=== PATIENT | female | born 1980 | race Hispanic/Latino ===

== ENCOUNTER 2016-07-23 16:04 | Emergency (ER) | payer SELFPAY ==
[~2016-07-23] VITALS: Ht 157.5 cm; Wt 75.0 kg
[~2016-07-23 16:04] MED LIST: BENADRYL 50MG C50 MG PO; CAPTOPRIL100 MG OR; CEPHALEXIN500 MG PO; CIPRO500 MG OR; FLOVENT HFA44 MCG IN; LORTAB 5 OR; MEDDOSEPAK PO; METFORMIN500 MG PO; NAPROSYN500 MG OR; NO HOME MEDS; NO MEDS; ORTHO TRI-CY; ORTHO TRI-CY OR; ORTHO TRI-CYCLEN LO PO; PHENERGAN25 MG/TAB PO; PROAIR HFA IN; ULTRAM50 M1 PO; ULTRAM50 MG OR; ZITHROMAX250 MG PO
[2016-07-23 16:36] LABS: URINE BILIRUBIN - DIPSTICK NEGATIVE (NEGATIVE); URINE BLOOD DIPSTICK NEGATIVE (NEGATIVE); URINE CLARITY CLEAR; URINE COLOR YELLOW; URINE GLUCOSE - DIPSTICK NEGATIVE (NEGATIVE); URINE KETONE NEGATIVE (NEGATIVE); URINE LEUK ESTERASE NEGATIVE (NEGATIVE); URINE NITRITE - DIPSTICK NEGATIVE (Negative); URINE PROTEIN - DIPSTICK NEGATIVE (NEG-TRACE); URINE UROBILINOGEN - DIPSTICK 0.2 E.U./dL (0.2)
[2016-07-23 16:51] LABS: HEMATOCRIT 36.9 % (37.0-47.0); HEMOGLOBIN 12.2 g/dl (12.0-16.0); IMMATURE GRANULOCYTES 0.4 % (0.0-1.0); MEAN CELL VOLUME 84.8 fL CALC (80.0-100.0); MEAN CORPUSCULAR HGB CONC 33.1 g/L CALC (32.0-36.0); NEUT# 3.45 thou/uL (2.00-7.15); RED BLOOD COUNT 4.35 mill/uL (4.20-5.60); RED CELL DISTRI WIDTH 12.3 % (11.5-15.5)
[2016-07-23 17:09] LABS: ALBUMIN 4.2 g/dL (3.2-5.0); ALKALINE PHOSPHATASE 79 u/l (38-126); AMYLASE 56 u/l (30-110); ANION GAP 17 (6-22 (CALC)); BILIRUBIN, TOTAL 0.5 mg/dL (0.0-1.4); BUN 12 mg/dL (7-17); BUN/CREATININE RATIO 18 (12-20 (CALC)); CALCIUM 9.1 mg/dL (8.4-10.2); CARBON DIOXIDE 26 mmol/l (22-30); CHLORIDE 107 mmol/l (95-108); CREATININE 0.6 mg/dL (0.5-1.0); GFR > 60 ML/MIN (>=60 (CALC)); GFR FOR AFR.AMER. > 60 ML/MIN (>=60 (CALC)); GLUCOSE 123 mg/dL (65-105); LIPASE 74 u/l (23-300); POTASSIUM 3.7 mmol/l (3.5-5.1); SGOT/AST 34 u/l (14-36); SGPT/ALT 19 u/l (9-52); SODIUM 146 mmol/l (137-146); TOTAL PROTEIN 7.9 g/dL (6.3-8.2)
[2016-07-23] MEDS ORDERED: NORCO1 TA1 PO (21:00)
[2016-07-23] MEDS ORDERED: METRONIDAZOL500 MG PO (21:00)
[2016-07-23] MEDS ORDERED: CIPROFLOXACN500 MG PO (21:00)
[2016-07-23 21:45] VITALS: BP 122/76
== END 2016-07-23 21:45 | disposition home or self-care (01) | DRG 392 ==
LOC: ED 16:04
PROVIDERS: Emergency Medicine
DX: K57.32 Diverticulitis of large intestine without perforation or abscess without bleeding (principal)
CPT/HCPCS: Q9967

== ENCOUNTER 2017-11-28 13:37 | Observation (INO) | payer SELFPAY ==
[~2017-11-28] VITALS: Ht 157.5 cm; Wt 80.0 kg
[~2017-11-28 13:37] MED LIST changes: +CIPROFLOXACN500 MG PO; +METRONIDAZOL500 MG PO; +NORCO1 TA1 PO
--- NOTE | 2017-11-28 13:40 | NUR ---
PT TAKEN STRAIGHT BACK TO ER ROOM 8 BY YASIR WITH MOM. CHANGED INTO GOWN. ASSITED TO BED x2.
--- NOTE | 2017-11-28 13:56 | NUR ---
PT HAS DIFFICULTY VERBALIZING DURING TRIAGE DUE TO PAIN. MOM STATES PT HAS BEEN FOR 5 YEARS AND HAS NEVER BEEN BEFORE [facility] HER PERIODS ARE IRREGULAR.
--- NOTE | 2017-11-28 14:00 | NUR ---
PT HYPERVENTILATING AND REPORTS NUMBESS AND TINGLING TO BILATERAL HANDS AND FACE. CARPOPEDAL SPASMS NOTED TO BILATERAL HANDS. PT REPORTS SUDDEN ONSET OF LOW PELVIC PAIN RADIATING TO PERINELA AREA. PER PT SHE FEELS IF SHE HAS A BULDGE IN HER VAGINA. PT ABD SOFT, TENDER TO LLQ. PT WRITING IN STRETCHER. 2 MG ATIVAN GIVEN VIA SLOW IVP. PT AND MOTHER AWARE OF PLAN OF CARE.
--- NOTE | 2017-11-28 14:10 | NUR ---
PT PAIN CONTINUES TO BE 10/10 BUT IS RESTING IN STRETCHER. PT HAS RELIEF FROM TINGLING IN BILATERAL HANDS AND FACE. MD NOTIIFED OF CONTINUED PAIN.
[2017-11-28 14:13] LABS: HEMOGLOBIN 13.3 g/dl (12.0-16.0); IMMATURE GRANULOCYTES 0.4 % (0.0-5.0); MEAN CELL VOLUME 85.5 fL CALC (80.0-100.0); MEAN CORPUSCULAR HGB 29.2 pG CALC (26.0-32.0); MEAN CORPUSCULAR HGB CONC 34.1 g/L CALC (32.0-36.0); NEUT# 9.22 thou/uL (2.00-7.15); RED BLOOD COUNT 4.56 mill/uL (4.20-5.60); RED CELL DISTRI WIDTH 12.3 % (11.5-15.5)
--- NOTE | 2017-11-28 14:30 | NUR ---
PT LYING ON LEFT SIDE HOLDING HER ABD AT THIS TIME. PT AND MOTHER AWARE OF PLAN TO HOLD ANY PAIN MEDICATION UNTIL TEST RESULTS RETURN. PT REPORTS PAIN AND BURNING UPON URINATION WELL. CALL SOTO WITHIN REACH.
[2017-11-28 14:31] LABS: URINE BILIRUBIN - DIPSTICK NEGATIVE (NEGATIVE); URINE BLOOD DIPSTICK NEGATIVE (NEGATIVE); URINE CLARITY CLEAR; URINE COLOR YELLOW; URINE GLUCOSE - DIPSTICK NEGATIVE (NEGATIVE); URINE KETONE NEGATIVE (NEGATIVE); URINE LEUK ESTERASE NEGATIVE (Negative); URINE NITRITE - DIPSTICK NEGATIVE (Negative); URINE PH 7.5 (4.5-8.0); URINE PROTEIN - DIPSTICK NEGATIVE (NEG-TRACE); URINE UROBILINOGEN - DIPSTICK 0.2 E.U./dL (0.2)
[2017-11-28 14:32] LABS: BARBITURATES NEGATIVE (NEGATIVE); COCAINE NEGATIVE (NEGATIVE); METHADONE NEGATIVE (NEGATIVE); OXCYCODONE NEGATIVE (NEGATIVE); TETRAHYDROCANNABIONOL NEGATIVE (NEGATIVE); TRICYLIC ANTIDEPRESSANTS NEGATIVE (NEGATIVE)
[2017-11-28 14:32] LABS: ALBUMIN 4.4 g/dL (3.2-5.0); ALKALINE PHOSPHATASE 101 u/l (38-126); ANION GAP 20 (6-22 (CALC)); BILIRUBIN, TOTAL 0.3 mg/dL (0.0-1.4); BUN 10 mg/dL (7-17); BUN/CREATININE RATIO 14 (12-20 (CALC)); CARBON DIOXIDE 19 mmol/l (22-30); CHLORIDE 105 mmol/l (95-108); CREATININE 0.7 mg/dL (0.5-1.0); GFR > 60 ML/MIN (>=60 (CALC)); GFR FOR AFR.AMER. > 60 ML/MIN (>=60 (CALC)); POTASSIUM 3.7 mmol/l (3.5-5.1); SGOT/AST 19 u/l (14-36); SGPT/ALT 34 u/l (9-52); SODIUM 141 mmol/l (137-146); TOTAL PROTEIN 7.7 g/dL (6.3-8.2)
[2017-11-28 14:49] LABS: BETA-HCG, QUANT(RESULT NUMBER) <2 mIU/mL
--- NOTE | 2017-11-28 14:52 | NUR ---
PT IN STRETCHER CRYING OUTIN PAIN ON HANDS AND KNEES AND REPORTS IF SHE FEELS SHE NEEDS TO PUSH SOMETHING OUT OF HER VAGINA. PT WILL NOT SIT DOWN ON STRETCHER OR LAY BACK. PT INFORMED THAT SHE IS NOT AND THAT THE MD HAS ORDERED PAIN MEDICATION FOR HER. PT SAT IN STRETCHER HOLDING LEFT SIDE AND PERINEAL AREA. NO DISCHARGE OR MASS NOTED TO THE VAGINAL OPENING UPON INSPECTION.
--- NOTE | 2017-11-28 14:56 | NUR ---
PT MEDICATED WITH 4MG OF MORPHINE AND 4MG OF ZOFRAN, IVP FOR 10/10 PAIN TO THE LEFT SIDED PELVIC AREA. LEFT SIDED CVA TENDERNESS NOTED WELL. PT AND MOTHER AWARE OF PLAN FOR CT SCAN AND WAIT TIME. CALL SOTO WITHIN REACH.
--- NOTE | 2017-11-28 15:30 | NUR ---
PT REPORTS PAIN IS 7/10 AND DENIES ANY NAUSEA AT THIS TIME. CALL SOTO WITHIN REACH.
--- NOTE | 2017-11-28 15:40 | NUR ---
PT TOLERATING PO CONTRAST WITH NO DIFFICULTY.
--- NOTE | 2017-11-28 16:29 | NUR ---
PT AND MOTHER AWARE OF WAIT TIME FOR CT SCAN. PT RESTING COMFORTABLY IN STRETCHER IN NAD WITH EYES CLOSED AND AWAKENS TO VERBAL STIMULI. PT REPORTS PAIN CONTINUES TO BE 7/10. CALL SOTO WITHIN REACH, WILL CONTINUE TO MONITOR.
--- NOTE | 2017-11-28 17:00 | NUR ---
PT RETURNED FROM CT SCAN AND REPORTS TROUBLE SPEAKING AND A DRY FEELING IN HER MOUTH. PT DENIES ANY TROUBLE BREATHING AT THIS TIME AND INFORMED THAT HER MOUTH FEELS VERBY DRY AND HER TEETH HURT. AT BEDSIDE TO EVALUATE PT. ICE CHIPS AND WATER PROVIDED.
--- NOTE | 2017-11-28 17:10 | NUR ---
TEMP RECHECK 101.0. NOTIFIED, AWAITING NEW ORDERS.
--- NOTE | 2017-11-28 17:15 | NUR ---
PT SPEAKING IN BROKEN MONGOLIAN AND REPORTS HER MOUTH FEELS MUCH BETTER.
--- NOTE | 2017-11-28 17:31 | NUR ---
MD AT BEDSIDE TO DISCUSS RESULTS AND PLAN FOR ADMISSION.
--- NOTE | 2017-11-28 17:49 | NUR ---
REPORT CALLED TO KHADRA DELGADO.
--- NOTE | 2017-11-28 18:00 | NUR ---
TEMP RECHECK 100.6. PTRESTING COMFORTABLY IN STRETCHER AND IS AWARE OF PLAN FOR TRANSPORT TO ROOM. PT PAIN IS 6/10 AT THIS TIME. CALL SOTO WITHIN REACH.
--- NOTE | 2017-11-28 18:10 | NUR ---
Admission Note Report Given to: sbar printed to floor Transported by: Wheelchair x Stretcher Transported with: x Nurse Transporter x Patent IV O2 Corrugated Fastener Driver
--- NOTE | 2017-11-28 18:16 | NUR ---
PT ARRIVED TO MS2 VIA STRETCHER TO RM 290 SHE IS [place] SPEAKING ONLY, PT ALERT AND ORIENTED X3, AMBULATED WITH STEADY GAIT TO DIGITAL STANDING SCALE. WEIGHT OBTAINED. PT ASSISTED TO BED, VITALS OBTAINED. NO SIGNS OF DISTRESS NOTED, RESP EVEN AND UNLABORED. PT REQUESTING 02 2L NC, SATS 98% RA, PT PLACED ON 02 2L NC. TEDS APPLIED, DISCUSSED NPO STATUS. AND ORIENTED TO ROOM, IV FLAGYL INFUSING AT THIS TIME, CALL LIGHT IN REACH,CONTINUE TO MONITOR.
[2017-11-28 18:17] VITALS: BP 121/77
--- NOTE | 2017-11-28 19:48 | NUR ---
BEDSIDE REPORT RECEIVED FROM KHADRA DELGADO. PT SITTING UP IN BED WITH VISITOR AT BEDSIDE; ALERT AND OREINTED; M[place]OCC[place] SPEAKING ONLY. DENIES PAIN CURRENTLY. RESPIRATIONS EVEN AND UNLABORED ON OXYGEN PER PT REQUEST. CIPRO INFUSING AT THIS TIME. PLAN OF CARE DISCUSSED. PT ENCOURAGED TO VERBALIZE CONCERNS. STATES UNDERSTANDING. SAFETY MEASURES IN PLACE. CALL LIGHT WITHIN REACH.
[2017-11-28 20:13] VITALS: BP 100/72
--- NOTE | 2017-11-28 20:33 | NUR ---
PT C/O 9/10 PAIN TO GROIN AREA, CONTINUES TO C/O SEVERE BURNING WITH URINATION, AND STATES THAT SHE FEELS LIKE SOMETHING IS PUSHING OUT OF HER VAGINA; NO VISIBLE ABNORMALIITES NOTED TO VAGINAL AREA. MORPHINE OFFERED TO PT, SHE DECLINED STATING THAT SHE DOES NOT LIKE THE WAY IT MAKES HER FEEL. SHE AGREED TO TAKE TYLENOL. TYLENOL GIVEN AND WARM COMPRESS APPLIED. PT INFORMED OF DIET UPGRADE TO CLEAR LIQUID AND SHE REQUESTED ORANGE JUICE. NO OTHER REQEUSTS AT THIS TIME. CALL LIGHT WITHIN REACH.
[2017-11-28 21:14] VITALS: BP 106/70
--- NOTE | 2017-11-28 21:55 | NUR ---
TYLENOL WAS INEFFECTIVE FOR PAIN. NEW ODER RECEIVED FOR DIALUDID AND PT AGREED TO TRY; ADMINISTERED AT THIS TIME. MOTHER REMAINS AT BEDSIDE.
--- NOTE | 2017-11-29 00:03 | NUR ---
PT ASLEEP AT THIS TIME WITH NO SIGNS OF DISTRESS. RESPIRATIONS EVEN AND UNLABROED ON OXYGEN. DIALUDID EFFECTIVE FOR GROIN PAIN. PT AMBULATES INTO BATHROOM INDEPENDENTLY. NO REQUESTS OR CONCERNS AT THIS TIME. SAFETY MEASURES IN PLACE. CALL LIGHT WITHIN REACH.
[2017-11-29 04:10] VITALS: BP 92/62
--- NOTE | 2017-11-29 04:12 | NUR ---
PT UP TO VOID; DIALAUDID GIVEN FOR GROIN PAIN. IV FLUIDS INFUSING WITHOUT DIFFICULTY; IV SITE APPEARS HEALTHY. NO ACUTE CHANGES IN CONDITION THROUGHOUT THE NIGHT. SAFETY MEASURES IN PLACE. CALL LIGHT WITHIN REACH.
--- NOTE | 2017-11-29 07:13 | NUR ---
PT RESTING IN BED, C/O PAIN 08/27. PT MEDICATED PER JUN. NO SIGNS OF DISTRESS NOTED, RESP EVEN AND UNLABORED. CALL LIGHT IN REACH,CONTINUE TO MONITOR.
[2017-11-29 08:52] VITALS: BP 99/70
--- NOTE | 2017-11-29 09:29 | NUR ---
ENTERED ROOM DUE TO IV PUMP BEEPING, DOWNSTREAM OCCLUSION, PT HAS HER ARM BENT AND SHE IS VOMITTING. PER MOTHER AT BEDSIDE, PT BECAME NAUSEOUS WHEN SHE ATTEMPTED TO EAT HER LIQUID DIET BREAKFAST TRAY. PT MEDICATED WITH ZOFRAN. NO SIGNS OF DISTRESS NOTED, RESP EVEN AND UNLABORED. 200CC EMPTIED FROM HAT. CALL LIGHT IN REACH,CONTINUE TO MONITOR.
[2017-11-29 13:42] LABS: HEMATOCRIT 35.1 % (37.0-47.0); HEMOGLOBIN 11.9 g/dl (12.0-16.0); IMMATURE GRANULOCYTES 0.4 % (0.0-5.0); MEAN CELL VOLUME 87.1 fL CALC (80.0-100.0); MEAN CORPUSCULAR HGB 29.5 pG CALC (26.0-32.0); MEAN CORPUSCULAR HGB CONC 33.9 g/L CALC (32.0-36.0); NEUT# 8.23 thou/uL (2.00-7.15); RED BLOOD COUNT 4.03 mill/uL (4.20-5.60); RED CELL DISTRI WIDTH 12.3 % (11.5-15.5)
--- NOTE | 2017-11-29 13:43 | NUR ---
PT STATES SHE FEEL WARM TEMP OBTAINED, PT AFEBRILE. FLAGYL INITIATED. CALL LIGHT IN REACH,CONTINUE TO MONITOR.
[2017-11-29 14:11] LABS: ANION GAP 13 (6-22 (CALC)); BUN 6 mg/dL (7-17); BUN/CREATININE RATIO 13 (12-20 (CALC)); CARBON DIOXIDE 23 mmol/l (22-30); CHLORIDE 106 mmol/l (95-108); CREATININE 0.5 mg/dL (0.5-1.0); GFR > 60 ML/MIN (>=60 (CALC)); GFR FOR AFR.AMER. > 60 ML/MIN (>=60 (CALC)); POTASSIUM 3.9 mmol/l (3.5-5.1); SODIUM 138 mmol/l (137-146)
[2017-11-29 16:00] VITALS: BP 105/70
--- NOTE | 2017-11-29 16:30 | NUR ---
PT RESTING IN BED, S/O AT BEDSIDE, NO SIGNS OF DISTRESS NOTED, RESP EVEN AND UNLABORED. PT VOICES NO NEEDS OR COMPLAINTS AT THIS TIME, CALL LIGHT IN REACH,CONTINUE TO MONITOR.
--- NOTE | 2017-11-29 18:44 | NUR ---
PT REQUESTING TO SHOWER, MOTHER AT BEDSIDE, PT PROVIDED WITH NEW LINENS AND GOWN. IVF STOPPED, IV SITE COVERED. ENCOURAGED TO CALL WHEN FINISHED.
[2017-11-29 19:00] VITALS: BP 131/90
--- NOTE | 2017-11-29 19:53 | NUR ---
BEDSIDE REPORT RECEIVED FROM KHADRA DELGADO. PT GETTING OUT OF THE SHOWER AT THIS TIME; MOTHER AT BEDSIDE; ALERT AND ORIENTED. C/O PAIN AT IV SITE AND MILD REDNESS NOTED; IV D/C'D AND NEW SITE PLACED TO LFA. ALSO C/O MILD PAIN TO GROIN/VAGINAL AREA. RESPIRATIONS EVEN AND UNLABORED ON ROOM AIR. PLAN OF CARE REVIEWED. PT ENCOURAGED TO VERBALIZE CONCERNS. STATES UNDERSTANDING. SAFETY MEASURES IN PLACE. CALL LIGHT WITHIN REACH.
--- NOTE | 2017-11-30 | NUR ---
PT ASLEEP AT THIS TIME WITH NO SIGNS OF DISTRESS. RESPIRATIONS EVEN AND UNLABORED ON ROOM AIR. MOTHER REMAINS AT BEDSIDE. IV FLUIDS INFUSING WITHOUT DIFFICULTY; IV SITE APPEARS HEALTHY. INDEPENDENT IN ROOM. SAFETY MEASURES IN PLACE. CALL LIGHT WITHIN REACH.
--- NOTE | 2017-11-30 04:15 | NUR ---
PT ASLEEP; AWAKENS TO VERBAL STIMULI. NO ACUTE CHANGES IN CONDITION THROUGHOUT THE NIGHT. CALL LIGHT WITHIN REACH.
[2017-11-30 05:29] VITALS: BP 90/64
--- NOTE | 2017-11-30 07:12 | NUR ---
BEDSIDE REPORT RECEIVED BY ARCHANA. PT IS SLEEPING ON HER RIGHT SIDE WITH NO S/S OF DISTRESS NOTED. CALL LIGHT IN REACH.
[2017-11-30 07:32] VITALS: BP 102/73
--- NOTE | 2017-11-30 08:03 | NUR ---
ASSESSMENT DONE. RESPS EVEN AND UNLABORED. PT STATED PAIN IN LOWER ABD 2/10. WARM PACK PROVIDED. NS 100ML/HR INFUSING WELL. PT DENIES NEEDS AT THIS TIME. SAFETY PRECAUTIONS REINFORCED AND CALL LIGHT IN REACH.
--- NOTE | 2017-11-30 08:34 | NUR ---
CULTURE RESULTS CALLED TO . 1 OF 2 SETS GROWING GRAM (+) COCCI. [id number]
--- NOTE | 2017-11-30 11:27 | NUR ---
S: MARYAMDAWIT ORTEGA is a 37 F who presents with Abdominal Pain. She has a history of IRREGULAR PERIODS AND DIVERTICULITIS. All medications in patient's chart were reviewed. O: VS: BP <102/73>, P<65>, RR<18>,T<98.5> W <80 kg>, HT<62 IN>, Scr=<0.5>,CrCl= >90ml/min A: Blood culture <show ONE OF 2 SETS GROWING GRAM (+) COCCI> which is sensitive to <PENDING >. P: Patient is on CIPRO/VANCO/FLAGYL. Vancomycin ordered for pharmacy to dose. Start Vancomycin 1 GRAM IV Q8H. Vancomycin trough is drawn before the 4th dose on 12/01/17 1530. Vancomycin goal trough is between 15-20 mcg/ml POSSIBLE [facility] WILL FOLLOW AND ADJUST ABX DOSE NEEDED JOANNE DIORD
--- NOTE | 2017-11-30 11:50 | NUR ---
NOTIFIED LELE RICK THAT PT IS ITCHING IN HER BACK, FACE AND EYES. DIRECTOR OF COLLECTIONS AND ARCHIVES AT BEDSIDE TO ASSESS PT. VANCOMYCIN HOLD AT THIS TIME PER DIRECTOR OF COLLECTIONS AND ARCHIVES. ORDERED RECEIVED. PT DENIES ANY OTHER NEEDS AT THIS TIME. PT MOM IN ROOM. CALL LIGHT IN REACH.
--- NOTE | 2017-11-30 12:10 | NUR ---
PT INCONTINENT WITH LARGE YELLOW URINE. CHIO CARE DONE. READJUSTED PURE WICK. SETUP UP PT FOR LUNCH. BED ALARM IN PLACE FOR SAFETY AND FAMILY LEFT . CALL LIGHT IN REACH.
[2017-11-30 12:30] VITALS: BP 104/70
--- NOTE | 2017-11-30 13:15 | NUR ---
PT IS SLEEPING IN BED WITH NO S/S OF DISTRESS NOTED. CALL LIGHT IN REACH.
--- NOTE | 2017-11-30 14:47 | NUR ---
PT INCONTINENT WITH LARGE YELLOW URINE. CHIO CARE DONE BY QUEBRACHO TANNER. REPLACE THE PURE WICK WITH A NEW ONE. TURN PT TO HER LEFT SIDE. PT IS A&O X1 TO SELF. SON IN ROOM. CALL LIGHT IN REACH.
--- NOTE | 2017-11-30 15:43 | NUR ---
PT IS SITTING IN THE RECLINER. PT DENIES PAIN AT THIS TIME. PT ALSO, DENIES ITCHING IN HER BODY. JUICE PROVIDED PER PT REQUEST. PT DENIES ANY OTHER NEEDS AT THIS TIME. CALL LIGHT IN REACH.
[2017-11-30 16:00] VITALS: BP 105/73
--- NOTE | 2017-11-30 19:24 | NUR ---
PT RESTING IN BED WATCHING TV WITH FAMILY AT BEDSIDE. PT CURRENTLY DENIES ANY PAIN. HOT PACK PROVIDED PER PT REQUEST. RESP EVEN AND UNLABORED. LUNGS CLEAR BILAT. ABD SOFT, HYPOACTIVE BOWEL SOUNDS. PEDAL PULSES PALPATED BILAT. IV LFA PATENT; NO REDNESS OR EDEMA NOTED. PT ENCOURAGED TO CALL FOR ASSISTANCE. SAFETY PRECAUTIONS REINFORCED. FREQUENT ROUNDS MADE. CALL LIGHT WITHIN REACH.
[2017-11-30 21:07] VITALS: BP 110/77
--- NOTE | 2017-12-01 00:27 | NUR ---
PT RESTING IN BED ON CELL PHONE. PT DENIES PAIN. RESP EVEN AND UNLABORED. IV PATENT, SITE APPEARS HEALTHY. FAMILY AT BEDSIDE. CALL LIGHT WITHIN REACH.
--- NOTE | 2017-12-01 03:55 | NUR ---
PT WOKE FOR MORNING VITALS. PT DENIES ANY PAIN. ASSESSMENT UNCHANGED THROUGHOUT THE NIGHT. IV PATENT, SITE APPEARS HEALTHY. FAMILY AT BEDSIDE. CALL LIGHT WITHIN REACH.
[2017-12-01 04:30] VITALS: BP 103/67
[2017-12-01 05:18] LABS: HEMATOCRIT 35.2 % (37.0-47.0); MEAN CELL VOLUME 86.1 fL CALC (80.0-100.0); MEAN CORPUSCULAR HGB 29.3 pG CALC (26.0-32.0); MEAN CORPUSCULAR HGB CONC 34.1 g/L CALC (32.0-36.0); RED BLOOD COUNT 4.09 mill/uL (4.20-5.60); RED CELL DISTRI WIDTH 12.1 % (11.5-15.5)
--- NOTE | 2017-12-01 06:02 | NUR ---
PT OUT OF BED SITTING IN BEDSIDE CHAIR WATCHING TV. PT DENIES ANY PAIN. IV PATENT. CALL LIGHT WITHIN REACH.
--- NOTE | 2017-12-01 07:15 | NUR ---
PT ALERT AND ORIENTED, RESTING IN BED, OFFERS NO COMPLAINTS, IVF INFUSING PRESCRIBED. AM ASSESSMENT COMPLETED SEE INTERVENTIONS, SKIN INTACT, DENIES N/V ABD SOFT., BM YESTERDAY PER REPORT, SAFETY MEASURES REINFRORCED, CALL CHARLES CARSON, WILL CONTINUE TO MONITOR
--- NOTE | 2017-12-01 07:35 | NUR ---
MEAL TRAY AT BEDSIDE, WILL MONITOR TOLERANCE
[2017-12-01 07:47] VITALS: BP 102/71
--- NOTE | 2017-12-01 08:04 | NUR ---
PT SITTING UP IN CHAIR AT BEDSIDE, OFFERS NO COMPLAINTS, CALL SOTO WITHIN REACH
--- NOTE | 2017-12-01 08:52 | NUR ---
TAKES PO MEDICATRION W/O INCIDENT, VISITOR AT BEDSIDE, IV ABT INFUSING ORDERED.
--- NOTE | 2017-12-01 10:18 | NUR ---
PT COMPLAINS OF BURNING/HOT AT IV INSERTION SITE, SLIGHTLY RED BUT ASPIRATE NOTED, IV ACCESS REMOVED INTACT PER PT REQUEST.
--- NOTE | 2017-12-01 11:07 | NUR ---
PT EDUCATED REGARDING PLAN OF CARE INCLUDING DIET CHANGE AND IF TOLERATED HOME THIS AFTERNOON, IV ACCESS REMAINS OUT PER VERBAL ORDER PLACIDO, WILL RESTART IF UNABLE TO TOLERATE DIET.
[2017-12-01] MEDS ORDERED: METRONIDAZOLE500 MG PO (12:43)
[2017-12-01] MEDS ORDERED: CIPROFLOXACIN500 M1 PO (12:43)
--- NOTE | 2017-12-01 13:01 | NUR ---
PT AWARE OF PLANNED D/C
--- NOTE | 2017-12-01 13:36 | NUR ---
D/C INSTRUCTIONS PROVIDED FOR PT WITH FAMILY MEMBER AT BEDSIDE, INSTRUCTED TO FOLLOW UP WITH PCP IN NEXT WEEK AND TO FOLLOW UP WITH BANDER HAND MAINOR, ALSO INSTRUCTED TO EAT LOW RESIDUE DIET, ABLE TO RETURN TO WORK FULL DUTY PER PLACIDO ROYAL, (LETTER STATING SUCH PROVIDED AT PT REQUEST) SCRIPTS FOR FLAGYL AND CIPRO PROVIDED TO PATIENT AND INSTRUCTED NEXT DOAGE FOR BOTH IS THIS PM AN BEDTIME, ALL INFORMATION PROVIDED TO PATIENT VIA REIMBURSEMENT CONSULTANT SHILA RODRIGUEZ, INSTRUCTED TO CALL WHEN DRESSED FOR W/C TO TRANPORT FOR D/C
--- NOTE | 2017-12-01 13:47 | NUR ---
PT D/C'D VIA WC TO HOME WITH FAMILY, ALL BELONGINGS SENT WITH PATIENT
== END 2017-12-01 13:47 | disposition home or self-care (01) | DRG 392 ==
LOC: ED 13:37 → ED-I 17:18 → ED 17:50 → MS2 17:51
PROVIDERS: Emergency Medicine; Nurse Practitioner Family; ADMIT General Practice; ATTEND General Practice
DX: K57.32 Diverticulitis of large intestine without perforation or abscess without bleeding (principal); N92.6 Irregular menstruation, unspecified; E66.9 Obesity, unspecified; L50.0 Allergic urticaria; N91.2 Amenorrhea, unspecified; N83.202 Unspecified ovarian cyst, left side; N83.201 Unspecified ovarian cyst, right side; Z68.32 Body mass index [BMI] 32.0-32.9, adult
CPT/HCPCS: G0378; J2060; Q9967; S0164

== ENCOUNTER 2017-12-07 13:53 | Observation (INO) | payer SELFPAY ==
[~2017-12-07] VITALS: Ht 157.5 cm; Wt 77.0 kg
[~2017-12-07 13:53] MED LIST changes: +CIPROFLOXACIN500 M1 PO; +METRONIDAZOLE500 MG PO
[2017-12-07 14:40] LABS: HEMATOCRIT 41.1 % (37.0-47.0); IMMATURE GRANULOCYTES 0.8 % (0.0-5.0); MEAN CELL VOLUME 85.6 fL CALC (80.0-100.0); MEAN CORPUSCULAR HGB 29.2 pG CALC (26.0-32.0); MEAN CORPUSCULAR HGB CONC 34.1 g/L CALC (32.0-36.0); NEUT# 3.83 thou/uL (2.00-7.15); RED BLOOD COUNT 4.8 mill/uL (4.20-5.60); RED CELL DISTRI WIDTH 12.4 % (11.5-15.5)
[2017-12-07 14:53] LABS: ALBUMIN 4.7 g/dL (3.2-5.0); ALKALINE PHOSPHATASE 78 u/l (38-126); AMYLASE 86 u/l (30-110); ANION GAP 19 (6-22 (CALC)); BILIRUBIN, TOTAL 0.4 mg/dL (0.0-1.4); BUN 15 mg/dL (7-17); BUN/CREATININE RATIO 14 (12-20 (CALC)); CARBON DIOXIDE 20 mmol/l (22-30); CHLORIDE 109 mmol/l (95-108); CREATININE 1.1 mg/dL (0.5-1.0); GFR 56 ML/MIN (>=60 (CALC)); GFR FOR AFR.AMER. > 60 ML/MIN (>=60 (CALC)); LIPASE 121 u/l (23-300); POTASSIUM 4.3 mmol/l (3.5-5.1); SGOT/AST 30 u/l (14-36); SGPT/ALT 56 u/l (9-52); SODIUM 144 mmol/l (137-146); TOTAL PROTEIN 8.4 g/dL (6.3-8.2)
[2017-12-07 15:19] LABS: URINE BILIRUBIN - DIPSTICK NEGATIVE (NEGATIVE); URINE BLOOD DIPSTICK NEGATIVE (NEGATIVE); URINE COLOR YELLOW; URINE GLUCOSE - DIPSTICK NEGATIVE (NEGATIVE); URINE KETONE NEGATIVE (NEGATIVE); URINE LEUK ESTERASE NEGATIVE (NEGATIVE); URINE NITRITE - DIPSTICK NEGATIVE (Negative); URINE PH 6.5 (4.5-8.0); URINE PROTEIN - DIPSTICK 30 mg/dL (NEG-TRACE); URINE SPECIFIC GRAVITY >=1.030; URINE UROBILINOGEN - DIPSTICK 0.2 E.U./dL (0.2)
[2017-12-07 15:20] LABS: URINE CLARITY SL CLOUDY
[2017-12-07 15:28] LABS: URINE CALCIUM OXALATE CRYSTALS MANY lpf; URINE RBC 0-2 RBC/hpf (0-5); URINE SQUAMOUS EPITHELIAL CELL FEW EPI/hpf (0-FEW); URINE WBC 0-2 WBC/hpf (0-5)
[2017-12-07 15:45] LABS: BARBITURATES NEGATIVE (NEGATIVE); COCAINE NEGATIVE (NEGATIVE); METHADONE NEGATIVE (NEGATIVE); OXCYCODONE NEGATIVE (NEGATIVE); TETRAHYDROCANNABIONOL NEGATIVE (NEGATIVE); TRICYLIC ANTIDEPRESSANTS NEGATIVE (NEGATIVE)
[2017-12-07 19:45] VITALS: BP 113/70
[2017-12-08 01:06] VITALS: BP 101/64
[2017-12-08 04:00] VITALS: BP 100/54
[2017-12-08 07:44] VITALS: BP 96/54
[2017-12-08 11:11] VITALS: BP 105/70
[2017-12-08 15:03] VITALS: BP 108/67
[2017-12-08 18:19] VITALS: BP 100/68
[2017-12-09 00:35] VITALS: BP 109/75
[2017-12-09 04:50] VITALS: BP 103/74
[2017-12-09] MEDS ORDERED: METRONIDAZOLE500 MG PO (09:06)
[2017-12-09] MEDS ORDERED: CIPROFLOXACIN500 M1 PO (09:06)
[2017-12-09 09:31] VITALS: BP 109/58
== END 2017-12-09 10:57 | disposition home or self-care (01) | DRG 392 ==
LOC: ED 13:53 → ED-I 14:16 → ED 14:16 → ED-I 18:55 → ED 19:10 → MS2 19:11
PROVIDERS: ADMIT Internal Medicine; ATTEND Internal Medicine
DX: K57.92 Diverticulitis of intestine, part unspecified, without perforation or abscess without bleeding (principal); N92.6 Irregular menstruation, unspecified
CPT/HCPCS: G0378

== ENCOUNTER 2018-04-21 21:26 | Emergency (ER) | payer SELFPAY ==
[~2018-04-21] VITALS: Ht 157.5 cm; Wt 71.8 kg
[2018-04-21 22:09] LABS: HEMATOCRIT 39.9 % (37.0-47.0); HEMOGLOBIN 13.3 g/dl (12.0-16.0); IMMATURE GRANULOCYTES 0.9 % (0.0-5.0); MEAN CELL VOLUME 87.3 fL CALC (80.0-100.0); MEAN CORPUSCULAR HGB 29.1 pG CALC (26.0-32.0); MEAN CORPUSCULAR HGB CONC 33.3 g/L CALC (32.0-36.0); NEUT# 4.46 thou/uL (2.00-7.15); RED BLOOD COUNT 4.57 mill/uL (4.20-5.60); RED CELL DISTRI WIDTH 11.9 % (11.5-15.5)
[2018-04-21] MEDS ORDERED: ZPAK PO (22:51)
[2018-04-21 23:06] VITALS: BP 129/82
== END 2018-04-21 23:15 | disposition home or self-care (01) | DRG 153 ==
LOC: ED 21:26
PROVIDERS: Family Medicine
DX: J02.0 Streptococcal pharyngitis (principal); R09.81 Nasal congestion; R50.9 Fever, unspecified; J34.89 Other specified disorders of nose and nasal sinuses; R05 Cough

== ENCOUNTER 2018-11-20 11:01 | Emergency (ER) | payer SELFPAY ==
[~2018-11-20] VITALS: Ht 157.5 cm; Wt 77.7 kg
[~2018-11-20 11:01] MED LIST changes: +ZPAK PO
[2018-11-20 11:59] LABS: HEMATOCRIT 39.1 % (37.0-47.0); HEMOGLOBIN 12.8 g/dl (12.0-16.0); IMMATURE GRANULOCYTES 0.6 % (0.0-5.0); MEAN CELL VOLUME 86.5 fL CALC (80.0-100.0); MEAN CORPUSCULAR HGB 28.3 pG CALC (26.0-32.0); MEAN CORPUSCULAR HGB CONC 32.7 g/L CALC (32.0-36.0); NEUT# 2.94 thou/uL (2.00-7.15); RED BLOOD COUNT 4.52 mill/uL (4.20-5.60); RED CELL DISTRI WIDTH 12.4 % (11.5-15.5)
[2018-11-20 12:03] LABS: ALBUMIN 4.3 g/dL (3.2-5.0); ALKALINE PHOSPHATASE 83 u/l (38-126); ANION GAP 14 (6-22 (CALC)); BILIRUBIN, TOTAL 0.4 mg/dL (0.0-1.4); BUN 12 mg/dL (7-17); BUN/CREATININE RATIO 15 (12-20 (CALC)); CARBON DIOXIDE 22 mmol/l (22-30); CHLORIDE 109 mmol/l (95-108); CREATININE 0.8 mg/dL (0.5-1.0); ETHYL ALCOHOL 0 mg/dl (0-30); GFR > 60 ML/MIN (>=60 (CALC)); GFR FOR AFR.AMER. > 60 ML/MIN (>=60 (CALC)); POTASSIUM 4.2 mmol/l (3.5-5.1); SGOT/AST 25 u/l (14-36); SODIUM 141 mmol/l (137-146); TOTAL PROTEIN 7.4 g/dL (6.3-8.2)
[2018-11-20 13:32] LABS: URINE BILIRUBIN - DIPSTICK NEGATIVE (NEGATIVE); URINE BLOOD DIPSTICK NEGATIVE (NEGATIVE); URINE COLOR YELLOW; URINE GLUCOSE - DIPSTICK NEGATIVE (NEGATIVE); URINE KETONE NEGATIVE (NEGATIVE); URINE LEUK ESTERASE NEGATIVE (NEGATIVE); URINE NITRITE - DIPSTICK NEGATIVE (Negative); URINE PROTEIN - DIPSTICK NEGATIVE (NEG-TRACE); URINE UROBILINOGEN - DIPSTICK 0.2 E.U./dL (0.2)
[2018-11-20 13:33] LABS: BARBITURATES NEGATIVE (NEGATIVE); COCAINE NEGATIVE (NEGATIVE); METHADONE NEGATIVE (NEGATIVE); OXCYCODONE NEGATIVE (NEGATIVE); TETRAHYDROCANNABIONOL NEGATIVE (NEGATIVE); TRICYLIC ANTIDEPRESSANTS NEGATIVE (NEGATIVE)
[2018-11-20 14:42] VITALS: BP 110/70
== END 2018-11-20 14:51 | disposition home or self-care (01) | DRG 312 ==
LOC: ED 11:01
PROVIDERS: Emergency Medicine
DX: R55 Syncope and collapse (principal)
CPT/HCPCS: J2060

== ENCOUNTER 2020-01-31 00:41 | Emergency (ER) | payer SELFPAY ==
[~2020-01-31] VITALS: Ht 152.4 cm; Wt 78.0 kg
[2020-01-31 01:40] LABS: HEMATOCRIT 38.4 % (37.0-47.0); HEMOGLOBIN 12.7 g/dl (12.0-16.0); IMMATURE GRANULOCYTES 0.4 % (0.0-5.0); MEAN CELL VOLUME 86.5 fL CALC (80.0-100.0); MEAN CORPUSCULAR HGB 28.6 pG CALC (26.0-32.0); MEAN CORPUSCULAR HGB CONC 33.1 g/dL CAL (32.0-36.0); NEUT# 8.76 thou/uL (2.00-7.15); RED BLOOD COUNT 4.44 mill/uL (4.20-5.60)
[2020-01-31 02:01] LABS: ALBUMIN 4.4 g/dL (3.2-5.0); ALKALINE PHOSPHATASE 88 u/l (38-126); ANION GAP 15 (6-22 (CALC)); BUN 12 mg/dL (7-17); BUN/CREATININE RATIO 17 (12-20 (CALC)); CARBON DIOXIDE 19 mmol/l (22-30); CHLORIDE 105 mmol/l (95-108); CREATININE 0.7 mg/dL (0.5-1.0); GFR > 60 ML/MIN (>=60 (CALC)); GFR FOR AFR.AMER. > 60 ML/MIN (>=60 (CALC)); HCG SERUM/URINE (NEG/POS) NEGATIVE (NEGATIVE); POTASSIUM 4.2 mmol/l (3.5-5.1); SGOT/AST 23 u/l (14-36); SODIUM 135 mmol/l (137-146); TOTAL PROTEIN 7.9 g/dL (6.3-8.2)
[2020-01-31 02:02] LABS: BILIRUBIN, TOTAL 0.6 mg/dL (0.0-1.4)
[2020-01-31 02:45] VITALS: BP 139/76
[2020-01-31 02:48] LABS: URINE BILIRUBIN - DIPSTICK NEGATIVE (NEGATIVE); URINE BLOOD DIPSTICK NEGATIVE (NEGATIVE); URINE COLOR YELLOW; URINE GLUCOSE - DIPSTICK NEGATIVE (NEGATIVE); URINE KETONE TRACE mg/dL (NEGATIVE); URINE LEUK ESTERASE NEGATIVE (NEGATIVE); URINE NITRITE - DIPSTICK NEGATIVE (Negative); URINE PH 8.5 (4.5-8.0); URINE PROTEIN - DIPSTICK NEGATIVE (NEG-TRACE); URINE SPECIFIC GRAVITY 1.015; URINE UROBILINOGEN - DIPSTICK 0.2 E.U./dL (0.2)
--- NOTE | 2020-02-02 09:22 | NUR ---
Patient's mother called for Covid results. Ashley Perales bundles hanger: can only notify the patient. Mother states patient is very ill. High fever and not responding to phone calls. Advised that patient should return to ED immediately for further evaluation.
== END 2020-01-31 02:45 | disposition home or self-care (01) | DRG 866 ==
LOC: ED 00:41
PROVIDERS: Family Medicine
DX: B34.9 Viral infection, unspecified (principal); Z20.828 Contact with and (suspected) exposure to other viral communicable diseases

== ENCOUNTER 2020-02-02 09:46 | Emergency (ER) | payer SELFPAY ==
[~2020-02-02] VITALS: Ht 152.4 cm; Wt 78.0 kg
[2020-02-02] MEDS ORDERED: ZITHROMAX250 MG PO (11:56)
[2020-02-02 14:35] VITALS: BP 115/63
== END 2020-02-02 14:35 | disposition home or self-care (01) | DRG 153 ==
LOC: ED 09:46
DX: J02.0 Streptococcal pharyngitis (principal); R51.9 Headache, unspecified